=== PATIENT | female | born 1980 | race Caucasian/White ===

== ENCOUNTER 2025-06-14 10:31 | Emergency (ER) | payer BC, SELFPAY ==
--- NOTE | 2025-06-14 10:36 | ED_ITS ---
HPI - Chest Pain General Chief Complaint: Arrhythmia/Palpitations Stated Complaint: ELEVATED BLOOD PRESSURE Time Seen by Provider: 06/14/25 10:32 Source: patient Mode of arrival: ambulatory Limitations: no limitations History of Present Illness HPI narrative: Pt is a 45 y/o female presenting with c/o elevated blood pressure. Additional sx reported include heart pounding in my neck (left side), dizziness. Sx b xuan last Thursday. No alleviating or aggravating factors. No CP, SOB, N,V. No lower extremity edema, recent travel, recent surgery. Reports paternal and materal cardiac disease. 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 States the last time something like this happened I had a really bad infection. No additional complaints. Related Data Home Medications ?Medication ?Instructions ?Recorded ?Confirmed ?Last Taken ?Type metoprolol succinate 25 mg mg PO 06/14/25 Unknown His tory tablet,extended release 24 hr Allergies Allergy/AdvReac Type Severity Reaction Status Date / Time No Known Allergies Allergy Verified 06/14/25 10:32 Review of Systems Review of Systems: CONSTITUTIONAL: Denies body aches, fever, chills, or sweats. EYES: Denies visual changes, redness, or discharge. ENT: Denies rhinorrhea, congestion, sore throat, or otalgia. CARDIOVASCULAR: Denies chest pain or edema. RESPIRATORY: Denies cough or dyspnea. GASTROINTESTINAL: Denies abdominal pain, nausea, vomiting, or diarrhea. GENITOURINARY: Denies dysuria or hematuria. SKIN: Denies rash, itching, or wounds. MUSCULOSKELETAL: Denies back pain, joint pain, or myalgia. NEUROLOGIC: Denies headache, numbness, tingling, or weakness. PSYCH: Denies depression All systems reviewed & are unremarkable except as noted in HPI and below Exam Narrative: GENERAL: Well-appearing, well-nourished, and in no acute distress. HEAD: Normocephalic, atraumatic. EYES: EOMI. No redness or drainage. Conjunctivae normal. ENT: Mucous membranes pink and moist. Nares clear. No rhinorrhea. TMs normal bilaterally. Throat normal. Uvula midline. NECK: Normal AROM. Supple. No lymphadenopathy. CHEST: No respiratory distress. Clear to auscultation. HEART: Regular rate and rhythm. No murmur appreciated. Normal peripheral pulses. ABDOMEN: Soft, nontender, nondistended, normal active bowel sounds. MUSCULOSKELETAL: No bony tenderness. EXTREMITIES: Normal range of motion. No edema. SKIN: Warm, dry, no rash. Capillary refill normal. Normal skin turgor. NEURO: No focal deficits. Alert and oriented x3. Gait steady. PSYCH: Anxious, tremulous. Course Course Level of Care: Express Care Visit Vital Signs Vital signs: Vital Signs Temperature 98.1 F 06/14/25 10:46 Pulse Rate 94 06/14/25 10:46 Respiratory Rate 28 H 06/14/25 10:46 Blood Pressure 185/121 H 06/14/25 10:46 Pulse Oximetry 100 06/14/25 10:46 Temperature 98.1 F 06/14/25 10:46 Pulse Rate 94 06/14/25 10:46 Respiratory Rate 28 H 06/14/25 10:46 Blood Pressure 185/110 H 06/14/25 10:47 Pulse Oximetry 100 06/14/25 10:46 Transfer Transfered to: [facility] Transportation: Other (POV) Transfer rationale: Access to higher level of care Accepting physician: Rimma MDM - Chest Pain MDM Narrative Medical decision making narrative: Given the patients reported sx, elevated BP readings, fam hx of cardiac disease, I recommended she be transferred to ER for further diagnostic work up. Pt requested to be transferred to ER via Private vehicle, operated by her . Aware of NPO status, go straight to ER. ECG Data EKG #1: Attestation: I personally reviewed and interpreted this ECG as follows: (N o stemi) ECG completion date: 06/14/25 ECG completion time: 10:45 Prior ECG tracings: not available for review EKG Interpretation: normal rate (70), sinus rhythm and no ST changes Discharge Plan Discharge Clinical Impression: Heart palpitations, Elevated blood pressure reading Patient Disposition: Acute Care Hospital Condition: Stable Patient Language: Nicaraguan Prescriptions: No Action metoprolol succinate 25 mg tablet extended release 24 hr PO Follow-up/Referrals: Liz,Hailey [Other] Time of Disposition: 10:45
[2025-06-14 10:46] VITALS: BP 185/121; PULSE 94; RESP 28; TEMP 36.7; O2SAT 100
[2025-06-14 10:47] VITALS: BP 185/110
--- NOTE | 2025-06-14 10:57 | ECG_ITS ---
Test Date: 2025-06-14 10:45:37 Measurements Intervals [place] Rate: 76 P: 63 CO: 141 QRS: 74 QRSD: 76 T: 58 QT: 364 QTc: 411 Interpretive Statements SINUS RHYTHM POSSIBLE RIGHT VENTRICULAR CONDUCTION DELAY BASELINE ARTIFACT- II, III, AVR, AVL, AVF, V1-V2 BORDERLINE ECG No previous ECG available for comparison Electronically Signed On 06-14-2025 11:01:17 CDT by Luis Enrique Jackson D.O.
== END 2025-06-14 11:02 | disposition short-term general hospital (02) ==
PROVIDERS: Emergency Provider Registered Nurse
DX: R00.2 Palpitations (principal); R03.0 Elevated blood-pressure reading, without diagnosis of hypertension
CPT/HCPCS: 93005; 99213; G0463

== ENCOUNTER 2025-06-14 11:14 | Emergency (ER) | payer BC, SELFPAY ==
[2025-06-14 11:21] VITALS: BP 162/101; PULSE 83; RESP 19; TEMP 36.5; O2SAT 99
--- OUTSIDE RECORDS SUMMARY | 2025-06-14 11:35 | XMS_ITS | Encounter Summary ---
Author Organization [facility] Healthcare Address [address] [place] [address] Care Team Providers Care Equipment Validation Engineer Name Role Phone Miscellaneous, Not In File Primary Care Provider Unavailable Hailey Hill DO Primary Care Provider Viraj Beatty MD Unavailable [phone] Keira Steele MD Unavailable [phone] Encounter Details Date Type Department Care Team (Late st Contact Info) Description 08/27/2020 Telephone [facility] Mammography [address] [place], [place] [id number] Karina Ngo, RT Social History Tobacco Use Types Packs/Day Years Used Date Smoking Tobacco: Every Day Cigarettes Smokeless Tobacco: Never Alcohol Use Standard Drinks/Week Comments Yes 0 (1 standard drink = 0.6 oz pur e alcohol) social Comments Unknown Sex and Gender Information Value Date Recorded Sex Assigned at Not on file 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 Gender Identity Not on file Sexual Orientation Not on file documented as of this encounter Plan of Treatment Not on file documented as of this encounter Visit Diagnoses Not on filedocumented in this encounter Care Teams Equipment Validation Engineer Relationship Specialty Start Date End Date Miscellaneous, Not In File PCP - General 12/30/22 02/10/23 Hailey Hill DO PCP - General Family Practice 02/11/23 Viraj Beatty MD [address] [facility] [place] [address] Referring Physician Obstetrics and Gynecology 04/28/23 Keira Steele MD [address] [facility] [address] [address] Consulting Physician Otolaryngology 02/09/24 documented as of this encounter
--- OUTSIDE RECORDS SUMMARY | 2025-06-14 11:35 | XMS_ITS | Clinical Summary ---
Author Organization [facility] Address [address] [place] [address] Care Team Providers Care Tinware Lithograph Press Operator Name Role Phone Viraj Beatty MD Unavailable [phone] Hailey Hill DO Primary Care Provider [phone] Source Comments [facility],non-owned Affiliates and Associated Physician Practices is amultiple site organization consisting of ambulatory clinics and hospital sitesin [place], [place], [place] and [place]. This disclosure is being madepursuant to the Care Everywhere program and may not contain all information available regarding this patient. Last updated 18.[facility] Allergies No known active allergies Medications * Be aware that medications may not be up to date on this document. Alwaysverify current medications with the patient. metoprolol succinate XL 24hr (Toprol XL) 25 MG tablet Take 1 (one) tablet by mouth at bedtime 06/29/2024 Active Active Problems No known active problems Immunizations Immunization Administration Dates Next Due TDAP (7yrs+) 11/28/2013 Social History Tobacco Use Types Packs/Day Years Used Date Smoking Tobacco: Every Day Cigarettes Smokeless Tobacco: Never Tobacco Cessation:Ready to Q uit: Yes; Counseling Given: Yes Alcohol Use Standard Drinks/Week Comments Not Asked 0 (1 standard drink = 0.6 oz pur e alcohol) PHQ-2 Answer Date Recorded Patient Health Questionnaire-2 Score 0 08/04/2024 Comments No Sex and Gender Information Value Date Recorded Sex Assigned at Not on file 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 Gender Identity Not on file Sexual Orientation Not on file Last Filed Vital Signs Vital Sign Reading Time Taken Comments Blood Pressure 118/78 08/05/2024 1:48 PM CDT Pulse - - Temperature - - Respiratory Rate - - Oxygen Saturation - - Inhaled Oxygen Concentration - - Weight 63.2 kg (139 lb 4.8 oz) 08/05/2024 1:48 P M CDT Height 172.7 cm (5' 8) 08/05/2024 1:48 PM CDT Body Mass Index 21.18 08/05/2024 1:48 PM CDT Plan of Treatment Health Maintenance Due Date Last Done Comments COLOGUARD (AGES 45-75) - COLON CA SCREENING 1979 COLON MONITORING 1979 COLONOSCOPY - COLON CA SCREENING 1979 CT COLONOGRAPHY - COLON CA SCREENING 1979 Colorectal Cancer Screening 1979 FIT - COLON CA SCREENING 1979 FLEX SIG - COLON CA SCREENING 1979 LIPID TESTING 1979 HIV SCREENING 1994 HEPATITIS C SCREENING 03/05/1997 HEPATITIS B VACCINE (1 of 3 - 19+ 3-dose series) 1998 PNEUMOCOCCAL VACCINE (1 of 2 - PCV) 1998 DTAP/TDAP/TD VACCINES (2 - Td or Tdap) 11/28/2023 11/28/2013 COVID-19 VACCINE ( - season) 2024 07/03/2022, 08/15/2021, 02/07/2021, Additional history exists DEPRESSION SCREENING 10/19/2024 08/04/2023 INFLUENZA VACCINE (#1) 2025 , 07/01/2021, 06/28/2020 MAMMOGRAM 05/31/2026 05/31/2024, 08/05/2024, 05/12/2024, Additional history exists PAP SMEAR 08/05/2027 08/05/2024, 07/19, 07/05/2021, Additional history exists ZOSTER VACCINE (1 of 2) 2029 HIB VACCINE Aged Out No longer eligi ble based on patient's age to complete this topic HPV VACCINE Aged Out No longer eligi ble based on patient's age to complete this topic MENINGOCOCCAL (Group B) VACCINE SHARED DECISION-MAKING Aged Out No longer eligible based on patient's age to complete this topic MENINGOCOCCAL GROUPS A/C/Y/W VACCINE Aged Out No longer eligible based on patient's age to complete this topic Procedures Procedure Name Priority Date/Time Associated Diagnosis Comments PAP IG RFLX HPV HR ASCUS RFLX 16/18/45 Routine 08/05/2024 1:53 PM CDT Pap smear, as part of routine gynecological examination MAMMOGRAM 05/26/2024 from Last 3 Months or Most Recently Relevant to Health Maintenance Results * PAP IG RFLX HPV HR ASCUS RFLX 16/18/45 (08/05/2024 1:53 PM CDT) Diagnosis Comment [facility] ACCOUNT BILL Comment: NEGATIVE FOR INTRAEPITHELIAL LESION OR MALIGNANCY. 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 Specimen Adequacy Comment [facility] ACCOUNT BILL Comment:Satisfactory for leidy luation. No endocervical component is identified. Clinician Provided ICD10 Comment [facility] ACCOUNT BILL Comment:Z01.419 Performed by Comment [facility] ACCOUNT BILL Comment:Rodger Luna totechnologist (ASC) QC Reviewed by Comment [facility] ACCOUNT BILL Comment:William Sandhu chnologist [facility] Comment . [facility] ACCOUNT BILL Note Comment [facility] ACCOUNT BILL Comment: The Pap smear is a screening test designed to aid in the detection of premalignant and malignant conditions of the uterine cervix. It is not a diagnostic procedure and should not be used as the sole means of detecting cervical cancer. Both false-positive and false-negative reports do occur. I[facility]BP CPT Code Automation Comment [facility] ACCOUNT BILL Comment: This liquid based ThinPrep(R) pap test was screened with the use of an image guided system. Note Comment [facility] ACCOUNT BILL Comment: The HPV DNA reflex criteria were not met with this specimen result therefore, no HPV testing was performed. Pathology/Cytolog y PART OF UTERINE CERVIX / Unknown 08/05/2024 1:53 PM CDT 08/05/2024 Comment:Cervix Release to pa t Narrative [facility] ACCOUNT BILL - 08/11/2024 9:12 AM CDT Performed at: - [facility] [address] [place], [place] [id number] Steam Generating Powerplant Mechanic: Juve Caal MD, Phone: [phone] Performed at: - [facility] [id number] Steam Generating Powerplant Mechanic: Kaycee Alberts MD, Phone: [phone] Specimen Comment: [id number] Specimen Comment: Source.............Cervix;Endocervix Specimen Comment: No. of containers..01 ThinPrep Vial us Viraj Beatty MD LAB - PATHOLOGY/CYTOLOGY ORD ERABLES Final Result [facility] ACCOUNT BILL [address] [place] [address] * MAMMOGRAM (05/26/2024) Anatomical Region Laterality Modality Other 05/26/2024 Narrative 05/26/2024 Ordered by an unspecified provider. us Scanned Document SCANNING ONLY Final Result from Last 3 Months or Most Recently Relevant to Health Maintenance Insurance [employer] Care Teams Tinware Lithograph Press Operator Relationship Specialty Start Date End Date Hailey Hill DO PCP - General Family Medicine 06/10/19 Viraj Beatty MD Obstetrics and Gynecology 11/28/13
--- OUTSIDE RECORDS SUMMARY | 2025-06-14 11:35 | XMS_ITS | Clinical Summary ---
Author Organization [facility] [address] [place] [address] Address [address] [place] [address] Care Team Providers Care Stitch Rubber Name Role Phone Hailey Hill DO Primary Care Provider Allergies No known active allergies Medications gabapentin (NEURONTIN) 300 mg capsule TAKE 1 CAPSULE BY MOUTH EVERY DAY AT NIGHT 09/05/2022 Active meloxicam (MOBIC) 15 mg tablet TAKE 1 TABLET BY MOUTH EVERY DAY NEEDED FOR PAIN 09/05/2022 Active Active Problems Problem Noted Date Diagnosed Date Right upper lobe pulmonary nodule 07/21/2022 Overview (07/21/2022): Seen on imaging 07/10 Sialolithiasis 07/21/2022 Overview (09/08/2022): Added automatically from request for surgery [id number] Added automatically from request for surgery [id number] LAURYN (generalized anxiety disorder) 07/03/2022 Tobacco abuse 06/23/2019 Vitamin B12 deficiency (non anemic) 06/23/2019 Resolved Problems Problem Noted Date Diagnosed Date Resolved Date Saddle anesthesia 02/24/2020 07/01/2021 Proctitis 02/24/2020 07/01/2021 Colitis 02/24/2020 07/01/2021 Immunizations Immunization Administration Dates Next Due (ADACEL/BOOSTRIX)(10 YR UP) TDAP VACCINE, 0.5ML, IM 02/19/2018,11/28/2013 (PFIZER)(12 YR UP) COVID-19 VACCINE - EMERGENCY USE AUTHORIZATION, MRNA, [id number](PF) 30 MCG/0.3 ML IM SUSP 02/07/2021,01/10/2021 (PNEUMOVAX 23)(50 YRS UP) PN EUMOCOCCAL POLYSACCHARIDE (PPV23) 0.5 ML, IM 06/23/2019 (PREVNAR 20)(6 WKS UP) PNEUM OCOCCAL CONJUGATE VACCINE 20-VALENT (PCV20), POLYSACCHARIDE [id number] CONJUGATE, ADJUVANT 0.5 ML (PF) IM 07/03/2022 (Pfizer Bivalent)(12 Yr Up) COVID-19 Vaccine - Emergency Use Authorization, MRNA, Lnp-S(Pf) 30 Mcg/0.3 Ml Susp 07/03/2022 INFLUENZA VACCINE QUADRIVALENT 6 MOS UP PF IM ,06/28/2020 Influenza Seasonal Unspecified Formulation IM ,07/01/2021 Family History Medical History Relation Name Comments Healthy Father Swapnil High Cholesterol Father Swapnil Hypertension Father Swpanil Healthy Mother Laura Healthy Sister 1 Nereyda Healthy Sister 2 Hailey Healthy Son 1 Babatunde Healthy Son 2 Jagdish Breast Cancer Neg Hx Colon Cancer Neg Hx Diabetes Neg Hx Heart Disease Neg Hx Relation Name Status Comments Father Swapnil Mother Laura Sister 1 Nereyda Sister 2 Hailey Son 1 Babatunde Son 2 Jagdish Social History Tobacco Use Types Packs/Day Years Used Date Smoking Tobacco: Every Day Cigarettes 0.5 20 Smokeless Tobacco: Never Tobacco Cessation:Ready to Q uit: Not Asked; Counseling Given: Not Answered Alcohol Use Standard Drinks/Week Comments Yes 0 (1 standard drink = 0.6 oz pur e alcohol) daily 2-3 glasses of wine Comments No Sex and Gender Information Value Date Recorded Sex Assigned at Not on file Legal Sex Female 11:57 PM CDT Gender Identity Not on file Sexual Orientation Not on file Last Filed Vital Signs Vital Sign Reading Time Taken Comments Blood Pressure 116/84 09/08/2022 8:39 AM SOLAR ENERGY CONSULTANT AND DESIGNER Pulse 81 07/21/2022 1:06 PM CDT Temperature 36.7 C (98 F) 07/21/2022 1:06 PM CDT Respiratory Rate 22 07/21/2022 1:06 PM CDT Oxygen Saturation 96% 07/21/2022 1:06 PM CDT Inhaled Oxygen Concentration - - Weight 60.1 kg (132 lb 9.6 oz) 07/21/2022 1:06 P M CDT Height 172.7 cm (5' 8) 07/21/2022 1:06 PM CDT Body Mass Index 20.16 07/21/2022 1:06 PM CDT Plan of Treatment Health Maintenance Due Date Last Done Comments HEPATITIS B VACCINES (1 of 3 - 19+ 3-dose series) 1998 HPV/Cotest (21-29) 2000 HPV/Cotest (30-65) 2009 FIT-DNA Q 3 years 2024 FIT/FOBT Q 1 year 2024 Flex Sig/CT Colonography Q 5 years 2024 COVID-19 Vaccine ( season) 2024 07/03/2022, 02/07/2021, 01/10/2021 CERVICAL CANCER SCREENING 07/05/2024 PAP SMEAR 07/05/2024 07/05/2021, 0901/2020, 06/10/2019 INFLUENZA VACCINE (#1) 2025 2, 07/01/2021, 07/01/2021, Additional history exists BREAST CANCER SCREENING 05/31/2025 05/31/20 24, 05/31/2024, 05/26/2024, Additional history exists DTAP/TDAP/TD VACCINES (3 - Td or Tdap) 02/20/2028 02/19/2018, 11/28/2013 COLORECTAL SCREENING 03/19/2030 03/19/2020, 03/19/20 20 Colorectal Cancer Screening 03/19/2030 HPV VACCINES Aged Out No longer eligi ble based on patient's age to complete this topic Procedures Procedure Name Priority Date/Time Associated Diagnosis Comments MAMMO SCREEN BILAT W OR WO CAD Routine 08/27/2021 COLONOSCOPY REPORT 03/19/2020 12 :18 PM CDT from Last 3 Months or Most Recently Relevant to Health Maintenance Results * MAMMO SCREEN BILAT W OR WO CAD (08/27/2021) Anatomical Region Laterality Modality Breast Bilateral Mammography us Abstract Provider MAMMO ORDERABLES Edited Result - Final * COLONOSCOPY REPORT (03/19/2020 12:18 PM CDT) Narrative Procedure Note Jeronimo Salazar MD - 03/19/2020 12:[address] [facility] Endoscopy Patient Name: Gloria Francis Procedure Date: 03/19/2020 Date of : 1980 Admit Type: Outpatient Attending MD: Jeronimo Salazar MD Procedure: Colonoscopy Indications: Abnormal CT of the GI tract Providers: Jeronimo Salazar MD Referring MD: Hailey Hill Medicines: Monitored Anesthesia Care Complications: No immediate complications. Procedure: Informed consent was obtained for the procedure, including moderate sedation after risks were discussed. Based on the pre-procedure assessment, including review of the patient's medical history, medications, allergies, and review of systems, the patient was deemed to be an appropriate candidate for sedation. A timeout was performed. Continuous ECG monitoring, pulse oximetry, blood pressure monitoring, and direct observation were performed. The Colonoscope was introduced through the anus and advanced to the cecum, identified by appendiceal orifice and ileocecal valve. The colonoscopy was performed without difficulty. The patient tolerated the procedure well. The quality of the bowel preparation was good. Findings: The perianal and digital rectal examinations were normal. A scattered area of mildly erythematous mucosa was found in the sigmoid colon. This was biopsied with a cold forceps for histology. External and internal hemorrhoids were found during retroflexion. The hemorrhoids were medium-sized and Grade I (internal hemorrhoids that do not prolapse). The exam was otherwise without abnormality on direct and retroflexion views. Impression: - Erythematous mucosa in the sigmoid colon. Biopsied. - External and internal hemorrhoids. - The examination was otherwise normal on direct and retroflexion views. Recommendation: - Discharge patient to home (with escort). - Await pathology results. - Repeat colonoscopy in 10 years for screening purposes. Procedure Code(s): --- Professional --- 57776, Colonoscopy, flexible; with biopsy, single or multiple CPT copyright 2018 [employer] [place] [employer]. All rights reserved. The codes documented in this report are preliminary and upon poultry breeder review may be revised to meet current compliance requirements. Jeronimo Salazar MD 03/19/2020 12:18:07 PM This report has been signed electronically. Number of Addenda: [id number] [place] [address] Jeronimo Salazar MD GI PROCEDURE ORDERABLES Final Result from Last 3 Months or Most Recently Relevant to Health Maintenance Insurance [facility] BLUE ACCESS CHOICE Care Teams Stitch Rubber Relationship Specialty Start Date End Date Hailey Hill DO PCP - General Family Practice 06/23/19
--- OUTSIDE RECORDS SUMMARY | 2025-06-14 11:35 | XMS_ITS | Clinical Summary ---
Author Organization [place] [id number] Address [address] [place] [address] Care Team Providers Care Commercial Accountant Name Role Phone HillHailey persaud Primary Care Provider Viraj Beatty MD Unavailable [phone] Keira Steele MD Unavailable [phone] Allergies No known active allergies Medications milk thistle 150 mg capsule Take 1 tablet by mouth daily Active TURMERIC ORAL Take 1 tablet by mouth daily Active metoprolol XL (TOPROL-XL) 25 mg extended release tablet Take 1 tablet (25 mg total) by mouth nightly 90 tablet 3 02/16/2025 Active Active Problems Problem Noted Date Diagnosed Date Acute bilateral low back pain without sciatica 0 12/30/2024 Assessment & Plan (12/30/2024 1:09 PM CDT): Chronic with acute worsening. Differentials include but not limited to lumbar strain, degenerative disease, herniated disc. No red flag symptoms. Advised supportive care with activity modification, Tylenol and ibuprofen, heat therapy, low back exercises provided. Physical therapy ordered. Note MRI done relatively recently and consider referral to pain management if fails to improve. Benign essential hypertension 03/16/2024 Assessment & Plan (04/25/2024 1:36 PM CDT): Mildly elevated today - Continue prescribed metoprolol 12.5 mg. Tolerating well, feeling better. Instructed to monitor BP/ HR at home daily for one week and upload recordings via [employer]. May need to increase dose. 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 I do not think she needs any further treatment or cardiac evaluation. She was very happy to hear this. We agreed on a plan for as-needed follow-up so she will contact me if she is any recurrent issues Assessment & Plan (07/17/2022 2:21 PM CDT): She has been having recurrent tachy palpitations last 2 days. EKG today shows sinus tachycardia with isolated PVC. She also had a couple PVCs in the ER. She is having some symptoms consistent with PVCs however this seems different than the consistent tachy palpitations which might be due to sinus tachycardia. She is on systemic steroids right now which could be exacerbating the issue but do not explain her original presentation. Overall her workup has been benign and is not suggestive of structural heart disease or a malignant arrhythmia. I agree with the plan for 30 day event monitor. We will see how her symptoms go from there and with the event monitor shows. I do not think she needs an echo right now unless the symptoms persist and without explanation. We talked about medical options such as diltiazem to try to suppress the symptoms if they persist -. No medications for now, follow-up 30 day event monitor Encounters Date Type Department Care Team Description 06/14/2025 Nurse Triage [facility] Primary Care at [place] [id number] [place] [address] [place] [address] Hailey Hill DO from Last 3 Months Immunizations Immunization Administration Dates Next Due Influenza, Quadrivalent, Spl it, Preservative Free, Intramuscular 07/01/2021,06/28/2020 Influenza, Trivalent, IM (MDV) 09/03/2022 Pfizer Sars-Cov-2 Bivalent Vaccination (12+ YRS) 07/03/2022 Pneumococcal Conjugate Pcv20 07/03/2022 Pneumococcal Polysaccharide PPV23 06/23/2019 Tdap 02/19/2018,11/28/2013 Surgical History Surgery Date Site/Laterality Comments NECK SURGERY HERNIA REPAIR SECTION APPENDECTOMY DILATION AND CURETTAGE OF UTERUS SALIVARY GLAND SURGERY Right BREAST BIOPSY 05/31/2024 Right Medical History Medical History Date Comments Anxiety Sialolithiasis Salivary stone PVC (premature ventricular contraction) Alcohol consumption heavy Tobacco abuse Palpitations 07/17/2022 Chronic sialoadenitis 07/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 Added auto matically from request for surgery [id number] Hypertension Family History Medical History Relation Name Comments Hypertension Father Swapnil Diabetes Maternal Grandfather Heart attack Maternal Grandfather Heart disease Maternal Grandfather Hypertension Mother Breast cancer Neg Hx Colon cancer Neg Hx Ovarian cancer Neg Hx Prostate cancer Neg Hx Relation Name Status Comments Father Swapnil Maternal Grandfather Mother Social History Tobacco Use Types Packs/Day Years Used Date Smoking Tobacco: Every Day Cigarettes 0.5 30 Smokeless Tobacco: Never Alcohol Use Standard Drinks/Week Comments Yes 0 (1 standard drink = 0.6 oz pur e alcohol) social AUDIT-C Answer Date Recorded Q1: How often do you have a drink containing alc ohol? 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 Gender Identity Not on file Sexual Orientation Not on file Obstetrics History Last Filed Vital Signs Vital Sign Reading Time Taken Comments Blood Pressure 122/80 02/16/2025 9:49 AM CDT Pulse 86 02/16/2025 9:49 AM CDT Temperature 37.5 C (99.5 F) 12/30/2024 12:46 PM CDT Respiratory Rate 18 12/30/2024 12:46 PM CDT Oxygen Saturation 98% 02/16/2025 9:49 AM CDT Inhaled Oxygen Concentration - - Weight 64 kg (141 lb) 02/16/2025 9:49 AM CDT Height 172.7 cm (5' 8) 02/16/2025 9:49 AM CDT Body Mass Index 21.44 02/16/2025 9:49 AM CDT Plan of Treatment Health Maintenance Due Date Last Done Comments Hepatitis C Screening 1980 Hepatitis B Screening 1997 Breast Cancer Screening-Mammogram 05/12/2025 05/12/2024, 04/28/2023, 08/27/2021, Additional history exists Influenza Vaccine (#1) 2025 , 07/01/2021, 06/28/2020 Cervical Cancer Screening 08/05/2025 08/05/2024, Covid-19 Vaccine ( season) 2026 07/03/2022, 08/15/2021, 02/07/2021, Additional history exists Postponed from 06/19/2024 (Patient declined, but will receive in the future) Depression Screening 02/16/2026 02/16/2025, 02/12/2024, 02/13/2023 Regular Well Visit/Exam 18-64 02/16/2026 02/16/2025, 02/12/2024, 02/13/2023 DTaP/Tdap/Td Vaccine (3 - Td or Tdap) 02/20/2028 02/19/2018, 11/28/2013 Colon Cancer Screening-Colonoscopy 03/19/2030 03/19/2020 Pneumococcal vaccine <65 Completed 07/03/2022, 02/2019 HPV Vaccines Aged Out No longer eligi ble based on patient's age to complete this topic Medical Devices Implanted Type Area Pbx Inspector Device Identifier Shelf Expiration Date Model / Serial / Lot [employer] [facility] Eviva 13cm Identifier Biopsy Site [id number] - [id number] Implanted:Qty: 1 on 05/31/2024 at [facility] [employer] [id number] 04/01/2025 [facility] / / [id number] Procedures Procedure Name Priority Date/Time Associated Diagnosis Comments SCREENING MAMMOGRAM BILATERAL W RGISELDA Schedule Routine, Read Routine (OP Routine) 05/12/2024 10:20 AM CDT Screening mammogram, encounter for from Last 3 Months or Most Recently Relevant to Health Maintenance Results * Screening Mammogram Bilateral W Griselda (05/12/2024 10:20 AM CDT) Anatomical Region Laterality Modality Breast Bilateral Mammography Narrative 05/13/2024 2:42 PM CDT Mammogram Technique: Bilateral Digital Breast Tomosynthesis, Bilateral C-view 2D Screening mammogram. Views obtained: bilateral craniocaudal and bilateral mediolateral oblique. Computer Aided Detection was performed. Mammogram Findings: The present examination has been compared to prior imaging studies performed at [facility] on 08/28/2020, 08/27/2021 and 04/28/2023. The breasts are heterogeneously dense, which may obscure small masses. There are calcifications in the middle of the right breast at 6 o'clock. There is no suspicious abnormality in the left breast. Impression: Calcifications in the right breast require additional evaluation. A diagnostic mammogram of the right breast is recommended at this time. OVERALL FINAL ASSESSMENT: BI-RADS CATEGORY 0: Incomplete: Need additional imaging evaluation. Procedure Note Rowena Locke MD - 05/13/2024 Mammogram Technique: Bilateral Digital Breast Tomosynthesis, Bilateral C-view 2D Screening mammogram. Views obtained: bilateral craniocaudal and bilateral mediolateral oblique. Computer Aided Detection was performed. Mammogram Findings: The present examination has been compared to prior imaging studies performed at [facility] on 08/28/2020, 08/27/2021 and 04/28/2023. The breasts are heterogeneously dense, which may obscure small masses. There are calcifications in the middle of the right breast at 6 o'clock. There is no suspicious abnormality in the left breast. Impression: Calcifications in the right breast require additional evaluation. A diagnostic mammogram of the right breast is recommended at this time. OVERALL FINAL ASSESSMENT: BI-RADS CATEGORY 0: Incomplete: Need additional imaging evaluation. us Self Screening Mammogram IMG MAMMO PROCEDURES Fi nal Result from Last 3 Months or Most Recently Relevant to Health Maintenance Insurance SUNDAYTOZ OOS [employer]DAY[employer] OOS SUNDAY[employer] OOS Care Teams Commercial Accountant Relationship Specialty Start Date End Date Hailey Hill DO PCP - General Family Practice 02/11/23 Viraj Beatty MD [address] [place] [address] Referring Physician Obstetrics and Gynecology 04/28/23 Keira Steele MD [address] [address] Consulting Physician Otolaryngology 02/09/24
--- OUTSIDE RECORDS SUMMARY | 2025-06-14 11:35 | XMS_ITS | Encounter Summary ---
Author Organization [facility] Address [address] [place] [address] Care Team Providers Care Tail Dogger Name Role Phone Hailey Hill DO Primary Care Provider Viraj Beatty MD Unavailable [phone] Keira Steele MD Unavailable [phone] Reason for Visit * Reason Onset Date Comments Hypertension 06/14/2025 Arrhythmia 06/14/2025 Anxiety 06/14/2025 Encounter Details Date Type Department Care Team (Late st Contact Info) Description 06/14/[address] [facility] Primary Care at [place] [id number] [place] [address] [place] [id number] [place] [address] [place] [address] Social History Tobacco Use Types Packs/Day Years [...] Frequency of Binge Drinking Not on file 0510/2024 PHQ-2 Answer Date Recorded PHQ-2 Total Score (If total score is 3 or more points, staff should administer the PHQ-9) 0 02/16/2025 Comments No Sex and Gender Information Value Date Recorded Sex Assigned at Not on file Legal Sex Female 10:53 AM ORTHOTIST OR PROSTHETIST Gender Identity Not on file Sexual Orientation Not on file documented as of this encounter Miscellaneous Notes * Telephone Encounter - Angela Urias RN - 06/14/2025 9:42 AM CDT Reason for Conversation Hypertension, Arrhythmia, and Anxiety Background Ms. Francis calls in today with reports of anxiety. States heart racing, HTN, shaky, dizzy. States severe episode 06/12. Does not feel that bad today, but did not trust she wouldn't have an episode andstayed home from work. Reached out to PCP 06/12, appt scheduled 07/11. Patient states she needs to beseen before then. BP just prior to triage 157/93, HR 75. States feels worried. Had anxiety her entire life, never medicated for it. Denies CP,SOB, blurred vision, difficulty walking, talking, numbness, tingling, weakness, thoughts of self or other harm. Does admit to daily drinking. States a cocktail and a glass of wine. Glass of wine is about 1/3 of the bottle. States she does smoke marijuana a couple of times a day. Denies any recent change in drinking habits. Encouraged Ms. Francis to call back with worsening sx. Limit caffeine, stimulants. Disposition See Within 3 Days in Office. Patient will seek care at [facility] today as she is feeling very anxious andsounds tearful. Triage recommends patient see PCP in 3 days. No appts available. Please advise. Reason for Disposition MODERATE anxiety (e.g., persistent or frequent anxiety symptoms; interferes with sleep, school, or work) No Initial Assessment on file. No Additional Information on file. Protocols Used Anxiety and Panic Bzibks-Zxraz-SC * Telephone Encounter - Angela Urias RN - 06/14/2025 9:30 AM CDT Regarding: Heart racing, high blood pressure ----- Message from Janis Joiner sent at 06/14/2025 9:24 AM CDT ----- Symptom Based Call Chief Complaint(s): Heart racing, high blood pressure Duration: today What type of symptom(s) is the patient experiencing? Red Flag. Is the patient concerned they are experiencing a medical emergency requiring an ambulance? No Additional Comments: Per 06/12/2025 ObserveIT message ,patient was previously instructed to go to the ER [facility] if her blood pressure spiked and she had tingling in her hands. Patient denies tingling, however her blood pressure is 155/99. She is very anxious/having trouble calming down. She would like to see Dr. Hill prior to 07/11/2025. Please advise Does message need to be routed? Yes-Action Needed documented in this encounter Plan of Treatment Not on file documented as of this encounter Visit Diagnoses Not on filedocumented in this encounter Care Teams Tail Dogger Relationship Specialty Start Date End Date Hailey Hill DO PCP - General Family Practice 02/11/23 Viraj Beatty MD [address] [place] [address] Referring Physician Obstetrics and Gynecology 04/28/23 Keira Steele MD [address] [address] Consulting Physician Otolaryngology 02/09/24 documented as of this encounter
--- OUTSIDE RECORDS SUMMARY | 2025-06-14 11:56 | XMS_ITS | Encounter Summary ---
Author Organization [facility] Address [address] [place] [address] Care Team Providers Care Can Conveyor Feeder Name Role Phone Miscellaneous, Not In File Primary Care Provider Unavailable Hailey Hill DO Primary Care Provider Viraj Beatty MD Unavailable [phone] Keira Steele MD Unavailable [phone] Encounter Details Date Type Department Care Team (Late st Contact Info) Description 08/27/[address] 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 Gender Identity Not on file Sexual Orientation Not on file documented as of this encounter Plan of Treatment Not on file documented as of this encounter Visit Diagnoses Not on filedocumented in this encounter Care Teams Can Conveyor Feeder Relationship Specialty Start Date End Date Miscellaneous, Not In File PCP - General 12/30/22 02/10/23 Hailey Hill DO PCP - General Family Practice 02/11/23 Viraj Beatty MD [address] [facility] [place] [address] Referring Physician Obstetrics and Gynecology 04/28/23 Keira Steele MD [address] [facility] [address] [address] Consulting Physician Otolaryngology 02/09/24 documented as of this encounter
--- OUTSIDE RECORDS SUMMARY | 2025-06-14 11:56 | XMS_ITS | Clinical Summary ---
Author Organization [place] [id number] Address [address] [place] [address] Care Team Providers Care Customer Contact Sales Associate Name Role Phone HillHailey persaud Primary Care Provider Viraj Beatty MD Unavailable [phone] Keira Steele MD Unavailable [phone] Allergies No known active allergies Medications milk [...] for one week and upload recordings via [employer]). May need to increase dose. 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 Overview (07/21/2022): Added automatically from request for surgery [id number] Palpitations 07/17/2022 02/13/2023 Assessment & Plan (08/20/2022 [...] Department Care Team Description 06/14/2025 Nurse Triage [facility] Primary Care at [place] [id number] [place] [address] [place] [address] Hailey Hill DO from Last [...] Added auto matically from request for surgery [id number] Hypertension Family History Medical History Relation Name [...] on file Legal Sex Female 10:53 AM 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 DIE INSPECTOR Gender Identity Not on file Sexual Orientation [...] this topic Medical Devices Implanted Type Area Staff Radiologist Device Identifier Shelf Expiration Date Model / Serial / Lot [employer] [facility] Eviva 13cm Identifier Biopsy Site [id number] - [id number] Implanted:Qty: 1 on 05/31/2024 at [facility] [employer] [id number] 04/01/2025 [facility] / / [id number] Procedures Procedure Name Priority Date/Time Associated Diagnosis Comments SCREENING MAMMOGRAM BILATERAL W GRISELDA Schedule Routine, Read Routine (OP Routine) 05/12/2024 [...] compared to prior imaging studies performed at [facility] on 08/28/2020, 08/27/2021 and 04/28/2023. The breasts [...] compared to prior imaging studies performed at [facility] on 08/28/2020, 08/27/2021 and 04/28/2023. The breasts [...] Most Recently Relevant to Health Maintenance Insurance * Guarantor: Kiran Francis Account Type Relation to Patient Date of Phone Billing Address Personal/Family Self [address] [place] [phone] Forrst OOS Forrst OOS * Guarantor: Kiran Francis Account Type Relation to Patient Date of Phone Billing Address Personal/Family Self [address] [place] [phone] Forrst OOS Care Teams Customer Contact Sales Associate Relationship Specialty Start Date End Date Hailey Hill DO PCP - General Family Practice 02/11/23 Viraj Beatty MD [address] [place] [address] [address] Referring Physician Obstetrics and Gynecology 04/28/23 Keira Steele MD [address] [address] Consulting Physician Otolaryngology 02/09/24
--- OUTSIDE RECORDS SUMMARY | 2025-06-14 11:57 | XMS_ITS | Clinical Summary ---
Author Organization [facility] Address [address] [place] [address] Care Team Providers Care Metal Tube Cutter Name Role Phone Viraj Beatty MD Unavailable [phone] Hailey Hill DO Primary Care Provider [phone] Source Comments [facility],non-owned Affiliates and Associated Physician Practices is amultiple site organization consisting of ambulatory clinics and hospital sitesin [place], [place], [place] and [place]. This disclosure is being madepursuant to the Care Everywhere program and may not contain all information available regarding this patient. 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 Specimen Adequacy Comment [facility] ACCOUNT BILL Comment:Satisfactory for leidy luation. No endocervical component is identified. Clinician Provided ICD10 Comment [facility] ACCOUNT BILL Comment:Z01.419 Performed by Comment [facility] ACCOUNT BILL Comment:Rodger Luna totechnologist (ASC) QC Reviewed by Comment [facility] ACCOUNT BILL Comment:William Sandhu [facility] Comment . [facility] ACCOUNT BILL Note [...] 08/11/2024 9:12 AM CDT Performed at: - [facility] [address] [address] [place], [place] [id number] Morgue Technician: Juve Caal MD, Phone: [phone] Performed at: - [facility] [id number] Morgue Technician: Kaycee Alberts MD, Phone: [phone] Specimen Comment: [id number] Specimen Comment: Source.............Cervix;Endocervix Specimen Comment: No. of containers..01 ThinPrep Vial us Viraj Beatty MD LAB - PATHOLOGY/CYTOLOGY ORD ERABLES Final Result [facility] ACCOUNT BILL [address] [place] [address] * MAMMOGRAM (05/26/2024) Anatomical Region Laterality Modality Other 05/26/2024 Narrative 05/26/2024 Ordered by an unspecified provider. us Scanned Document SCANNING ONLY Final Result from Last 3 Months or Most Recently Relevant to Health Maintenance Insurance [employer]AYNA Care Teams Metal Tube Cutter Relationship Specialty Start Date End Date Hailey Hill DO PCP - General Family Medicine 06/10/19 Viraj Beatty MD Obstetrics and Gynecology 11/28/13
--- OUTSIDE RECORDS SUMMARY | 2025-06-14 11:57 | XMS_ITS | Clinical Summary ---
Author Organization [facility] [address] [place] [address] Address [address] [place] [address] Care Team Providers Care Contact Lens Blocker And Cutter Name Role Phone Hailey Hill DO Primary Care Provider [phone] Allergies No known active allergies Medications gabapentin [...] (09/08/2022): Added automatically from request for surgery [id number] Added automatically from request for surgery [id number] LAURYN (generalized anxiety disorder) 07/03/2022 Tobacco abuse 06/23/2019 Vitamin B12 deficiency (non anemic) 06/23/2019 Resolved Problems Problem Noted Date Diagnosed Date Resolved Date Saddle anesthesia 02/24/2020 07/01/2021 Proctitis 02/24/2020 07/01/2021 Colitis 02/24/2020 07/01/2021 Immunizations Immunization Administration Dates Next Due (ADACEL/BOOSTRIX)(10 YR UP) TDAP VACCINE, 0.5ML, IM 02/19/2018,11/28/2013 (PFIZER)(12 YR UP) COVID-19 VACCINE - EMERGENCY USE AUTHORIZATION, MRNA, [id number](PF) 30 MCG/0.3 ML IM SUSP 02/07/2021,01/10/2021 (PNEUMOVAX 23)(50 YRS UP) PN EUMOCOCCAL POLYSACCHARIDE (PPV23) 0.5 ML, IM 06/23/2019 (PREVNAR 20)(6 WKS UP) PNEUM OCOCCAL CONJUGATE VACCINE 20-VALENT (PCV20), POLYSACCHARIDE [id number] CONJUGATE, ADJUVANT 0.5 ML (PF) IM 07/03/2022 (Pfizer Bivalent)(12 Yr Up) COVID-19 Vaccine - Emergency Use Authorization, MRNA, Lnp-S(Pf) 30 Mcg/0.3 Ml Susp 07/03/2022 INFLUENZA VACCINE QUADRIVALENT 6 MOS UP PF IM ,06/28/2020 Influenza Seasonal Unspecified Formulation IM ,07/01/2021 Family History Medical History Relation Name Comments Healthy Father Swapnil High Cholesterol Father Swapnil Hypertension Father Swapnil Healthy Mother Laura Healthy Sister 1 Nereyda [...] Comments Blood Pressure 116/84 09/08/2022 8:39 AM NON DESTRUCTIVE TESTING INSPECTOR Pulse 81 07/21/2022 1:06 PM CDT Temperature [...] Salazar MD - 03/19/2020 12:18 PM CDT [facility] Patient Name: Gloria Francis Procedure Date: [...] screening purposes. Procedure Code(s): --- Professional --- 04483, Colonoscopy, flexible; with biopsy, single or multiple CPT copyright 2018 [employer]. All rights reserved. The codes documented in this report are preliminary and upon sign fabricator review may be revised to meet current compliance requirements. Jeronimo Salazar MD 03/19/2020 12:18:07 PM This report has been signed electronically. Number of Addenda: [id number] [place] [address] Jeronimo Salazar MD GI PROCEDURE ORDERABLES Final Result from Last 3 Months or Most Recently Relevant to Health Maintenance Insurance [facility] BLUE ACCESS CHOICE Care Teams Contact Lens Blocker And Cutter Relationship Specialty Start Date End Date Hailey Hill DO PCP - General Family Practice 06/23/19
--- OUTSIDE RECORDS SUMMARY | 2025-06-14 11:57 | XMS_ITS | Encounter Summary ---
Author Organization [facility] Healthcare Address [address] [place] [address] Care Team Providers Care Dynamometer Repairer Name Role Phone Hailey Hill DO Primary Care Provider Viraj Beatty MD Unavailable [phone] Keira Steele MD Unavailable [phone] Reason for Visit * Reason Onset Date Comments Hypertension 06/14/2025 Arrhythmia 06/14/2025 Anxiety 06/14/2025 Encounter Details Date Type Department Care Team (Late st Contact Info) Description 06/14/2025 Nurse Triage [facility] [place] [id number] [place] [id number] Hailey Hill [id number] [place] [address] [place] [address] Social History Tobacco Use Types [...] on file 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 Patient will seek care at [facility] today as she is feeling very anxious andsounds tearful. Triage recommends patient see PCP in 3 days. No appts available. Please advise. Reason for Disposition MODERATE anxiety (e.g., persistent or frequent anxiety symptoms; interferes with sleep, school, or work) No Initial Assessment on file. No Additional Information on file. Protocols Used Anxiety and Panic [id number] * Telephone Encounter - Angela Urias RN [...] an ambulance? No Additional Comments: Per 06/12/2025 [employer] message ,patient was previously instructed to go [...] on filedocumented in this encounter Care Teams Dynamometer Repairer Relationship Specialty Start Date End Date Hailey Hill DO PCP - General Family Practice 02/11/23 Viraj Beatty MD [address] [place] [id number] Referring Physician Obstetrics and Gynecology 04/28/23 Keira Steele MD [address] [address] Consulting Physician Otolaryngology 02/09/24 documented as of this encounter
--- NOTE | 2025-06-14 12:01 | ECG_ITS ---
Test Date: 2025-06-14 12:19:30 Measurements Intervals [place] Rate: 70 P: 69 MT: 135 QRS: 77 QRSD: 84 T: 59 QT: 390 QTc: 423 Interpretive Statements SINUS RHYTHM WITH SINUS ARRHYTHMIA MINIMAL Q WAVES- ANTEROLAT/INF LEADS BASELINE ARTIFACT- I, II, III, AVR, AVL, AVF BORDERLINE ECG Compared to ECG 06/14/2025 10:45:37 NO SIGNIFICANT CHANGE Electronically Signed On 06-14-2025 12:47:36 CDT by Luis Enrique Jackson D.O.
--- NOTE | 2025-06-14 12:02 | ED_ITS ---
HPI - General Adult General Chief complaint: Recheck/Abnormal Lab/Rx Stated complaint: HTN Time Seen by Provider: 06/14/25 11:42 History of Present Illness HPI narrative: This is a 45-year-old female coming to the ED with concerns about her blood pressure. Patient says that she has been having spikes in her blood pressure over the last several weeks. These are associated with periods of immense anxiety and overwhelming dread. She frequently gets facial flushing and tingling around her mouth hands and feet when this happens. Patient notes that her anxiety has been increasing and she wonders if it is due to being perimenopausal as her periods have now become irregular. She does not have any slurred speech, weakness to any extremity chest pain difficulty breathing abdominal pain nausea vomiting or diarrhea. No vision changes. No headaches. Patient has been placed on a beta-julissa by her primary care physician which she was told would treat her hypertension as well as help with her anxiety. Related Data Home Medications ?Medication ?Instructions ?Recorded ?Confirmed ?Last Taken ?Type metoprolol succinate 25 mg mg PO 06/14/25 Unknown His tory tablet,extended release 24 hr Allergies Allergy/AdvReac Type Severity Reaction Status Date / Time No Known Allergies Allergy Verified 06/14/25 10:32 Exam Narrative: Vital signs reviewed. Of note blood pressure is 162/101 APPEARANCE: Patient is anxious appearing and intermittently tearful throughout the interview Head: atraumatic. EYES: EOMI, NOSE: Atraumatic NECK: Trachea midline RESPIRATORY: No increased rate of breathing clear to auscultation CARDIOVASCULAR: RRR, no peripheral edema ABDOMINAL: Non-distended soft nontender MUSCULOSKELETAl: No obvious deformities NEURO: Alert. Cranial nerves 2-12 grossly intact. Sensation light touch, motor function cerebellar function intact for 4 extremities. Gait exam was normal. SKIN:: Warm, dry. Normal color PSYCHIATRIC: Normal affect Course Vital Signs Vital signs: Vital Signs Temperature 97.7 F 06/14/25 11:21 Pulse Rate 83 06/14/25 11:21 Respiratory Rate 19 06/14/25 11:21 Blood Pressure 162/101 H 06/14/25 11:21 Pulse Oximetry 99 06/14/25 11:21 Oxygen Delivery Room Air 06/14/25 11:21 Temperature 97.7 F 06/14/25 11:21 Pulse Rate 83 06/14/25 11:21 Respiratory Rate 19 06/14/25 11:21 Blood Pressure 162/101 H 06/14/25 11:21 Pulse Oximetry 99 06/14/25 11:21 Oxygen Delivery Room Air 06/14/25 11:21 Medical Decision Making MDM Narrative Medical decision making narrative: -Course: 45-year-old female presenting ED concerned about her hypertension. After speaking heard appears that her anxiety is become significantly worse over the last several weeks and that corresponds whenever she has elevated blood pressures. Here her blood pressure was mildly elevated but she is clearly emotionally distraught. Her physical exam is unremarkable. After speaking with her at length we will give her a dose of Valium. Blood pressures re-evaluated when she has come down improved to 131/96. She is comfortable following up with her primary care physician. Patient given return precautions for chest pain, difficulty breathing, stroke symptoms, or worsening anxiety. -DDX includes but is not limited to: Anxiety, panic disorder, hypertensive emergency/urgency, perimenopause -Co-morbidities complicating care: Anxiety, hypertension, menopause Vital Signs Vital Signs: Vital Signs Temperature 97.7 F 06/14/25 11:21 Pulse Rate 83 06/14/25 11:21 Respiratory Rate 19 06/14/25 11:21 Blood Pressure 162/101 H 06/14/25 11:21 Pulse Oximetry 99 06/14/25 11:21 Oxygen Delivery Room Air 06/14/25 11:21 Temperature 97.7 F 06/14/25 11:21 Pulse Rate 83 06/14/25 11:21 Respiratory Rate 19 06/14/25 11:21 Blood Pressure 162/101 H 06/14/25 11:21 Pulse Oximetry 99 06/14/25 11:21 Oxygen Delivery Room Air 06/14/25 11:21 Discharge Plan Discharge Clinical Impression: Anxiety Patient Disposition: Home Condition: Stable Instructions: Antibiotic Form, Anxiety (ED) Additional Instructions: You were seen emergency department for elevated blood pressures. The spikes in your blood pressures seem to be closely related to your anxiety attacks. Please follow-up with your primary care physician for further management. If you develop worsening anxiety, thoughts of harming herself or others chest pain difficulty breathing slurred speech or weakness in extremity please return to ED for re-evaluation. Follow up with your PCP in 3-5 days. Patient Language: Latvian Prescriptions: No Action metoprolol succinate 25 mg tablet extended release 24 hr PO Follow-up/Referrals: PHYSICIAN NOT ON STAFF,NONSTAFF [Primary Care Provider]
[2025-06-14] MEDS: diazePAM INJ (*CRX) 10 MG/2 ML SYRINGE 5 MG IM (12:16)
[2025-06-14 12:41] VITALS: BP 131/96; PULSE 75; RESP 18; O2SAT 96
== END 2025-06-14 13:00 | disposition home or self-care (01) ==
PROVIDERS: Emergency Provider Emergency Medicine
DX: F41.9 Anxiety disorder, unspecified (principal); I10 Essential (primary) hypertension
CPT/HCPCS: 93005; 99283; J3360